=== PATIENT | male | born 1950 | race Caucasian/White ===

== ENCOUNTER 2018-01-11 19:03 | Inpatient (IN) | payer MEDICARE, OTHER ==
[2018-01-11] MEDS: ACETAMINOPHEN 325 MG TAB PO (20:09)
[2018-01-11] MEDS: morphine 4 MG/ML VIAL IV (20:10)
[2018-01-11] MEDS: SODIUM CHLORIDE 0.9% 1L BAG IV* (20:10)
[2018-01-11] MEDS: CEFTRIAXONE 1 GM/50 ML (PMX) 50 ML IVPB (20:10)
[2018-01-11] MEDS: ONDANSETRON 4 MG INJ IV (20:11)
[2018-01-11 20:13] LABS: ADD MAN DIFF? NO
[2018-01-11 20:18] LABS: WHITE BLOOD COUNT 11.1 10^3/ul (4.8-10.8)
[2018-01-11 20:18] LABS: BASOPHILS % 0.2 % (0.0-2.0); EOSINOPHILS % 0.3 % (0.0-7.0); HEMATOCRIT 32.2 % (42.0-52.0); HEMOGLOBIN 10.8 g/dl (14.0-18.0); LYMPHOCYTES # 1.1 10^3/ul (0.8-2.9); LYMPHOCYTES % 9.4 % (15.0-51.0); MEAN CORPUSCULAR HGB CONC 33.5 g/dl (32.0-37.0); MEAN CORPUSCULAR VOLUME 92.5 fl (82.0-101.0); MEAN PLATELET VOLUME 10.7 fl (7.4-10.4); MONOCYTE # 0.7 10^3/ul (0.3-0.9); MONOCYTES % 5.8 % (0.0-11.0); NEUTROPHIL # 9.3 10^3/ul (1.6-7.5); NEUTROPHILS % 83.9 % (39.0-77.0); PLATELET COUNT 190 10^3/UL (140-415); RED BLOOD COUNT 3.48 10^6/ul (4.70-6.10); RED CELL DISTRIBUTION WIDTH 13.9 % (11.5-14.5)
[2018-01-11 20:35] LABS: LACTIC ACID 1.3 mmol/L (0.5-2.0)
[2018-01-11 20:37] LABS: ALANINE AMINOTRANSFERASE 17 IU/L (13-69); ALBUMIN 3.6 g/dl (3.3-4.9); ALBUMIN/GLOBULIN RATIO 0.85; ALKALINE PHOSPHATASE 139 IU/L (42-121); ANION GAP 16 (8-16); ASPARTATE AMINO TRANSFERASE 31 IU/L (15-46); BILIRUBIN,INDIRECT 1.1 mg/dl (0-1.1); BILIRUBIN,TOTAL 1.1 mg/dl (0.2-1.3); BLOOD UREA NITROGEN 34 mg/dl (7-20); CALCIUM 8.5 mg/dl (8.4-10.2); CARBON DIOXIDE 25 mmol/L (21-31); CHLORIDE 100 mmol/L (97-110); CREATININE 1.78 mg/dl (0.61-1.24); GLUCOSE 99 mg/dl (70-220); POTASSIUM 4.5 mmol/L (3.5-5.1); SODIUM 136 mmol/L (135-144); TOTAL PROTEIN 7.8 g/dl (6.1-8.1)
[2018-01-11 20:38] LABS: INR 1.18; PARTIAL THROMBOPLASTIN TIME 39.1 Sec (25.0-35.0); PROTIME 15.2 Sec (11.9-14.9); PT RATIO 1.2
[2018-01-11 22:22] LABS: LACTIC ACID 0.9 mmol/L (0.5-2.0)
[2018-01-11 22:47] LABS: ADD UMIC NO; UR ASCORBIC ACID NEGATIVE (NEGATIVE); UR BILIRUBIN (Dip) NEGATIVE (NEGATIVE); UR BLOOD (Dip) NEGATIVE (NEGATIVE); UR CLARITY CLEAR (CLEAR); UR COLOR YELLOW (YELLOW); UR GLUCOSE (Dip) NEGATIVE (NEGATIVE); UR KETONES (Dip) NEGATIVE (NEGATIVE); UR LEUKOCYTE ESTERASE (Dip) NEGATIVE Leu/ul (NEGATIVE); UR NITRITE (Dip) NEGATIVE (NEGATIVE); UR SPECIFIC GRAVITY (Dip) 1.012 (1.003-1.030); UR TOTAL PROTEIN (Dip) NEGATIVE (NEGATIVE); UR UROBILINOGEN (Dip) 1+ mg/dL (NEGATIVE)
[2018-01-11] MEDS ORDERED: ZOLPIDEM 5 MG TAB PO (23:00)
[2018-01-11] MEDS ORDERED: ONDANSETRON 4 MG INJ IV ×2 (23:00)
[2018-01-11] MEDS ORDERED: HYDROCODONE/APAP (5/325) TAB PO (23:00)
[2018-01-11] MEDS ORDERED: ACETAMINOPHEN 325 MG TAB PO (23:00)
[2018-01-11] MEDS ORDERED: ACETAMINOPHEN 500 MG TAB PO (23:00)
[2018-01-12 00:12] LABS: LACTIC ACID 0.9 mmol/L (0.5-2.0)
[2018-01-12] MEDS: AZITHROMYCIN 500MG/NS (PMX) 250 ML IVPB (00:34)
[2018-01-12] MEDS: APIXABAN 5 MG TABLET PO ×3 (01:37→20:35)
[2018-01-12 05:49] LABS: ADD MAN DIFF? NO
[2018-01-12 05:53] LABS: WHITE BLOOD COUNT 9.1 10^3/ul (4.8-10.8)
[2018-01-12 05:53] LABS: BASOPHILS % 0.2 % (0.0-2.0); EOSINOPHILS % 0.1 % (0.0-7.0); HEMOGLOBIN 9.5 g/dl (14.0-18.0); LYMPHOCYTES # 0.6 10^3/ul (0.8-2.9); MEAN CORPUSCULAR HEMOGLOBIN 30.8 pg (29.0-33.0); MEAN CORPUSCULAR HGB CONC 32.8 g/dl (32.0-37.0); MEAN CORPUSCULAR VOLUME 94.2 fl (82.0-101.0); MEAN PLATELET VOLUME 10.9 fl (7.4-10.4); MONOCYTE # 0.5 10^3/ul (0.3-0.9); MONOCYTES % 5.7 % (0.0-11.0); NEUTROPHIL # 7.9 10^3/ul (1.6-7.5); NEUTROPHILS % 86.8 % (39.0-77.0); PLATELET COUNT 161 10^3/UL (140-415); RED BLOOD COUNT 3.08 10^6/ul (4.70-6.10); RED CELL DISTRIBUTION WIDTH 13.5 % (11.5-14.5)
[2018-01-12 06:09] LABS: ANION GAP 12 (8-16); BLOOD UREA NITROGEN 35 mg/dl (7-20); CALCIUM 7.7 mg/dl (8.4-10.2); CARBON DIOXIDE 25 mmol/L (21-31); CHLORIDE 107 mmol/L (97-110); CREATININE 1.85 mg/dl (0.61-1.24); GLUCOSE 131 mg/dl (70-220); POTASSIUM 4.9 mmol/L (3.5-5.1); SODIUM 139 mmol/L (135-144)
[2018-01-12] MEDS: CEFTRIAXONE 1 GM INJ IM (09:42)
[2018-01-12] MEDS: FERROUS SULFATE (EC) 325 MG TAB PO ×3 (09:42→20:39)
[2018-01-12] MEDS: MULTIVIT/CA CARB/B CMPLX/FA TAB PO (09:42)
[2018-01-12] MEDS: AZITHROMYCIN 500 MG in SOD CHLORIDE 0.9% 250 ML IVPB (09:46)
[2018-01-12] MEDS: FLUTICASONE 0.05% 16 GM NAS SPRAY NASAL (09:46)
[2018-01-12] MEDS ORDERED: ACETAMINOPHEN 325 MG TAB PO (10:00)
[2018-01-12] MEDS: FAMOTIDINE 20 MG TAB PO (10:36)
[2018-01-12] MEDS: BUMETANIDE 1 MG INJ IV (13:12)
[2018-01-12] MEDS: BUMETANIDE 1 MG TAB PO (17:45)
[2018-01-12] MEDS: ATORVASTATIN 40 MG TAB PO (20:35)
[2018-01-13] MEDS: BUMETANIDE 1 MG TAB PO (05:35)
[2018-01-13 06:04] LABS: ADD MAN DIFF? NO
[2018-01-13 06:15] LABS: BASOPHILS % 0.5 % (0.0-2.0); EOSINOPHILS # 0.1 10^3/ul (0.0-0.5); EOSINOPHILS % 1.4 % (0.0-7.0); HEMATOCRIT 27.5 % (42.0-52.0); HEMOGLOBIN 9.1 g/dl (14.0-18.0); LYMPHOCYTES # 0.9 10^3/ul (0.8-2.9); LYMPHOCYTES % 13.4 % (15.0-51.0); MEAN CORPUSCULAR HEMOGLOBIN 30.7 pg (29.0-33.0); MEAN CORPUSCULAR HGB CONC 33.1 g/dl (32.0-37.0); MEAN CORPUSCULAR VOLUME 92.9 fl (82.0-101.0); MEAN PLATELET VOLUME 11.5 fl (7.4-10.4); MONOCYTE # 0.5 10^3/ul (0.3-0.9); MONOCYTES % 8.1 % (0.0-11.0); NEUTROPHIL # 5.1 10^3/ul (1.6-7.5); NEUTROPHILS % 76.1 % (39.0-77.0); PLATELET COUNT 147 10^3/UL (140-415); RED BLOOD COUNT 2.96 10^6/ul (4.70-6.10); RED CELL DISTRIBUTION WIDTH 13.9 % (11.5-14.5)
[2018-01-13 06:15] LABS: WHITE BLOOD COUNT 6.6 10^3/ul (4.8-10.8)
[2018-01-13 07:07] LABS: ANION GAP 11 (8-16); BLOOD UREA NITROGEN 44 mg/dl (7-20); CARBON DIOXIDE 25 mmol/L (21-31); CHLORIDE 107 mmol/L (97-110); CREATININE 2.04 mg/dl (0.61-1.24); GLUCOSE 108 mg/dl (70-220); POTASSIUM 4.4 mmol/L (3.5-5.1); SODIUM 139 mmol/L (135-144)
[2018-01-13] MEDS: MULTIVIT/CA CARB/B CMPLX/FA TAB PO (08:56)
[2018-01-13] MEDS: APIXABAN 5 MG TABLET PO (08:59)
[2018-01-13] MEDS: FAMOTIDINE 20 MG TAB PO (08:59)
[2018-01-13] MEDS: LEVOFLOXACIN 750MG/D5W (PMX) 150 ML IVPB (09:06)
[2018-01-13] MEDS: FERROUS SULFATE (EC) 325 MG TAB PO ×2 (09:07→13:00)
[2018-01-13 09:19] LABS: MAGNESIUM 2.1 mg/dl (1.7-2.5)
[2018-01-13 09:19] LABS: PHOSPHORUS 4.8 mg/dl (2.5-4.9)
[2018-01-13] MEDS: LACTOBACILLUS RHAMNOSUS CAP PO (12:44)
== END 2018-01-13 15:42 | disposition home or self-care (01) | DRG 194 ==
LOC: PP2 22:40 → E/R 19:03
DX: J18.9 Pneumonia, unspecified organism (principal); I42.9 Cardiomyopathy, unspecified; I50.20 Unspecified systolic (congestive) heart failure; I48.91 Unspecified atrial fibrillation; E78.5 Hyperlipidemia, unspecified; E11.9 Type 2 diabetes mellitus without complications; N18.3 Chronic kidney disease, stage 3 (moderate); Z95.0 Presence of cardiac pacemaker
CPT/HCPCS: 36415; 71045; 71046; 80048; 80053; 81003; 83605; 83735; 84100; 84484; 85025; 85610; 85730; 87040; 87086; 93005; 96374; 96375; 99291-25

== ENCOUNTER 2018-10-07 20:39 | Emergency (ER) | payer SELFPAY, OTHER, MEDICARE | END 2018-10-08 02:05 | disposition left against medical advice (07) | LOC: FTE 20:39 | DX: Z53.21 Procedure and treatment not carried out due to patient leaving prior to being seen by health care provider (principal) | CPT/HCPCS: 93005 ==

== ENCOUNTER 2019-01-24 12:52 | Inpatient (IN) | payer MEDICARE, OTHER ==
[2019-01-24 13:54] LABS: ADD MAN DIFF? NO
[2019-01-24 13:57] LABS: WHITE BLOOD COUNT 5.3 10^3/ul (4.8-10.8)
[2019-01-24 13:57] LABS: BASOPHIL # 0.1 10^3/ul (0.0-0.1); BASOPHILS % 1.3 % (0.0-2.0); EOSINOPHILS # 0.1 10^3/ul (0.0-0.5); EOSINOPHILS % 2.5 % (0.0-7.0); HEMATOCRIT 33.4 % (42.0-52.0); HEMOGLOBIN 10.9 g/dl (14.0-18.0); LYMPHOCYTES # 0.7 10^3/ul (0.8-2.9); LYMPHOCYTES % 13.3 % (15.0-51.0); MEAN CORPUSCULAR HEMOGLOBIN 30.5 pg (29.0-33.0); MEAN CORPUSCULAR HGB CONC 32.6 g/dl (32.0-37.0); MEAN CORPUSCULAR VOLUME 93.6 fl (82.0-101.0); MONOCYTE # 0.6 10^3/ul (0.3-0.9); MONOCYTES % 10.9 % (0.0-11.0); NEUTROPHIL # 3.8 10^3/ul (1.6-7.5); NEUTROPHILS % 71.8 % (39.0-77.0); PLATELET COUNT 208 10^3/UL (140-415); RED BLOOD COUNT 3.57 10^6/ul (4.70-6.10); RED CELL DISTRIBUTION WIDTH 14.6 % (11.5-14.5)
[2019-01-24 14:21] LABS: ALANINE AMINOTRANSFERASE 38 IU/L (13-69); ALBUMIN 2.6 g/dl (3.3-4.9); ALBUMIN/GLOBULIN RATIO 0.86; ALKALINE PHOSPHATASE 97 IU/L (42-121); ANION GAP 5 (5-13); ASPARTATE AMINO TRANSFERASE 51 IU/L (15-46); BILIRUBIN,INDIRECT 0.4 mg/dl (0-1.1); BILIRUBIN,TOTAL 0.4 mg/dl (0.2-1.3); BLOOD UREA NITROGEN 80 mg/dl (7-20); CALCIUM 7.5 mg/dl (8.4-10.2); CARBON DIOXIDE 29 mmol/L (21-31); CHLORIDE 103 mmol/L (97-110); CREATININE 2.94 mg/dl (0.61-1.24); Estimated GFR 21 mL/min (>60); GLUCOSE 111 mg/dl (70-220); POTASSIUM 3.9 mmol/L (3.5-5.1); SODIUM 137 mmol/L (135-144); TOTAL PROTEIN 5.6 g/dl (6.1-8.1)
[2019-01-24 14:30] LABS: B-TYPE NATRIURETIC PEPTIDE 12200 PG/ML (0-125)
[2019-01-24 14:34] LABS: TROPONIN-I < 0.012 ng/ml (0.000-0.120)
[2019-01-24] MEDS: BUMETANIDE 1 MG INJ IV ×2 (15:57→18:00)
[2019-01-24] MEDS ORDERED: ONDANSETRON 4 MG INJ IV (17:00)
[2019-01-24] MEDS ORDERED: ACETAMINOPHEN 325 MG TAB PO (17:00)
[2019-01-24] MEDS ORDERED: NACL 0.9% 3 ML SYG IV (17:30)
[2019-01-24] MEDS ORDERED: DOCUSATE SODIUM 100 MG CAP PO (17:30)
[2019-01-24] MEDS ORDERED: ZOLPIDEM 5 MG TAB PO (17:30)
[2019-01-24] MEDS ORDERED: HYDROCODONE/APAP (5/325) TAB PO (17:30)
[2019-01-24] MEDS ORDERED: morphine 2 MG INJ IV (17:30)
[2019-01-24] MEDS: ATORVASTATIN 40 MG TAB PO (23:34)
[2019-01-24] MEDS: APIXABAN 5 MG TABLET PO (23:34)
[2019-01-24] MEDS: AMIODARONE 200 MG TAB PO (23:35)
[2019-01-25] MEDS: BUMETANIDE 1 MG INJ IV ×2 (06:33→18:00)
[2019-01-25 06:50] LABS: ADD MAN DIFF? NO
[2019-01-25 06:51] LABS: WHITE BLOOD COUNT 5.2 10^3/ul (4.8-10.8)
[2019-01-25 06:51] LABS: BASOPHILS % 0.8 % (0.0-2.0); EOSINOPHILS # 0.2 10^3/ul (0.0-0.5); EOSINOPHILS % 3.5 % (0.0-7.0); HEMATOCRIT 30.8 % (42.0-52.0); HEMOGLOBIN 9.9 g/dl (14.0-18.0); LYMPHOCYTES # 0.8 10^3/ul (0.8-2.9); LYMPHOCYTES % 15.5 % (15.0-51.0); MEAN CORPUSCULAR HEMOGLOBIN 30.2 pg (29.0-33.0); MEAN CORPUSCULAR HGB CONC 32.1 g/dl (32.0-37.0); MEAN CORPUSCULAR VOLUME 93.9 fl (82.0-101.0); MEAN PLATELET VOLUME 11.3 fl (7.4-10.4); MONOCYTE # 0.6 10^3/ul (0.3-0.9); MONOCYTES % 12.2 % (0.0-11.0); NEUTROPHIL # 3.5 10^3/ul (1.6-7.5); NEUTROPHILS % 67.4 % (39.0-77.0); PLATELET COUNT 201 10^3/UL (140-415); RED BLOOD COUNT 3.28 10^6/ul (4.70-6.10); RED CELL DISTRIBUTION WIDTH 14.6 % (11.5-14.5)
[2019-01-25 07:05] LABS: HEMOGLOBIN A1C 5.8 % (0-5.9)
[2019-01-25 07:14] LABS: ANION GAP 4 (5-13); BLOOD UREA NITROGEN 69 mg/dl (7-20); CALCIUM 7.6 mg/dl (8.4-10.2); CARBON DIOXIDE 30 mmol/L (21-31); CHLORIDE 106 mmol/L (97-110); CHOL/HDL RATIO 4.9 RATIO; CHOLESTEROL 104 mg/dl (100-200); CREATININE 2.27 mg/dl (0.61-1.24); Estimated GFR 29 mL/min (>60); GLUCOSE 82 mg/dl (70-220); HDL CHOLESTEROL 21 mg/dl (31-75); LDL CHOLESTEROL,CALCULATED 61 mg/dl; MAGNESIUM 2.2 mg/dl (1.7-2.5); PHOSPHORUS 3.8 mg/dl (2.5-4.9); POTASSIUM 3.5 mmol/L (3.5-5.1); SODIUM 140 mmol/L (135-144); TRIGLYCERIDES 111 mg/dl (0-149)
[2019-01-25] MEDS: MULTIVIT/CA CARB/B CMPLX/FA TAB PO (09:58)
[2019-01-25] MEDS: APIXABAN 5 MG TABLET PO ×2 (09:59→21:46)
[2019-01-25] MEDS: AMIODARONE 200 MG TAB PO ×2 (10:01→21:00)
[2019-01-25 20:38] LABS: ADD UMIC NO; UR ASCORBIC ACID 20 mg/dL (NEGATIVE); UR BILIRUBIN (Dip) NEGATIVE (NEGATIVE); UR BLOOD (Dip) NEGATIVE (NEGATIVE); UR CLARITY CLEAR (CLEAR); UR COLOR YELLOW (YELLOW); UR GLUCOSE (Dip) NEGATIVE (NEGATIVE); UR KETONES (Dip) NEGATIVE (NEGATIVE); UR LEUKOCYTE ESTERASE (Dip) NEGATIVE Leu/ul (NEGATIVE); UR NITRITE (Dip) NEGATIVE (NEGATIVE); UR SPECIFIC GRAVITY (Dip) 1.011 (1.003-1.030); UR TOTAL PROTEIN (Dip) NEGATIVE (NEGATIVE); UR UROBILINOGEN (Dip) NEGATIVE (NEGATIVE)
[2019-01-25 20:44] LABS: CREATININE,URINE RANDOM 70.99 mg/dl (20-370)
[2019-01-25 20:46] LABS: SODIUM,URINE RANDOM < 13 mmol/L (30-90)
[2019-01-25] MEDS: ATORVASTATIN 40 MG TAB PO (21:42)
[2019-01-26] MEDS: BUMETANIDE 1 MG INJ IV ×2 (01:39→06:24)
[2019-01-26] MEDS: ALBUTEROL/IPRATROPIUM (NEB) 3 ML AMP HHN ×2 (01:53→12:06)
[2019-01-26 06:13] LABS: ADD MAN DIFF? NO
[2019-01-26 06:25] LABS: BASOPHIL # 0.1 10^3/ul (0.0-0.1); BASOPHILS % 0.9 % (0.0-2.0); EOSINOPHILS # 0.2 10^3/ul (0.0-0.5); EOSINOPHILS % 3.3 % (0.0-7.0); HEMATOCRIT 32.7 % (42.0-52.0); HEMOGLOBIN 10.7 g/dl (14.0-18.0); LYMPHOCYTES # 0.9 10^3/ul (0.8-2.9); LYMPHOCYTES % 15.8 % (15.0-51.0); MEAN CORPUSCULAR HEMOGLOBIN 30.8 pg (29.0-33.0); MEAN CORPUSCULAR HGB CONC 32.7 g/dl (32.0-37.0); MEAN CORPUSCULAR VOLUME 94.2 fl (82.0-101.0); MEAN PLATELET VOLUME 10.9 fl (7.4-10.4); MONOCYTE # 0.7 10^3/ul (0.3-0.9); MONOCYTES % 12.7 % (0.0-11.0); NEUTROPHIL # 3.9 10^3/ul (1.6-7.5); PLATELET COUNT 214 10^3/UL (140-415); RED BLOOD COUNT 3.47 10^6/ul (4.70-6.10); RED CELL DISTRIBUTION WIDTH 14.6 % (11.5-14.5)
[2019-01-26 06:25] LABS: WHITE BLOOD COUNT 5.8 10^3/ul (4.8-10.8)
[2019-01-26 07:07] LABS: ANION GAP 5 (5-13); BLOOD UREA NITROGEN 54 mg/dl (7-20); CALCIUM 7.6 mg/dl (8.4-10.2); CARBON DIOXIDE 30 mmol/L (21-31); CHLORIDE 105 mmol/L (97-110); Estimated GFR 35 mL/min (>60); GLUCOSE 97 mg/dl (70-220); MAGNESIUM 2.3 mg/dl (1.7-2.5); PHOSPHORUS 3.6 mg/dl (2.5-4.9); POTASSIUM 3.7 mmol/L (3.5-5.1); SODIUM 140 mmol/L (135-144)
[2019-01-26] MEDS: METOLAZONE 2.5 MG TAB PO (08:28)
[2019-01-26] MEDS: MULTIVIT/CA CARB/B CMPLX/FA TAB PO (08:28)
[2019-01-26] MEDS: APIXABAN 5 MG TABLET PO (08:29)
[2019-01-26] MEDS: AMIODARONE 200 MG TAB PO (08:29)
[2019-01-26] MEDS: ONDANSETRON 4 MG INJ IV (12:08)
[2019-01-26] MEDS: ACETAMINOPHEN 325 MG TAB PO (13:06)
[2019-01-28 14:57] LABS: CREATININE, RANDOM URINE 68 mg/dL (20-320); MICROALBUMIN 0.3 mg/dL; MICROALBUMIN/CREATININE RATIO 4 (<30)
== END 2019-01-26 18:30 | disposition home or self-care (01) | DRG 291 ==
LOC: E/R 12:52 → 6WM 16:46
DX: I13.0 Hypertensive heart and chronic kidney disease with heart failure and stage 1 through stage 4 chronic kidney disease, or unspecified chronic kidney disease (principal); I50.23 Acute on chronic systolic (congestive) heart failure; J96.00 Acute respiratory failure, unspecified whether with hypoxia or hypercapnia; N17.9 Acute kidney failure, unspecified; I42.9 Cardiomyopathy, unspecified; E78.5 Hyperlipidemia, unspecified; D64.9 Anemia, unspecified; I48.0 Paroxysmal atrial fibrillation; N18.3 Chronic kidney disease, stage 3 (moderate); R73.03 Prediabetes; Z85.038 Personal history of other malignant neoplasm of large intestine; Z95.0 Presence of cardiac pacemaker; Z85.028 Personal history of other malignant neoplasm of stomach
CPT/HCPCS: 36415; 71045; 80048; 80053; 80061; 81003; 82043; 83036; 83735; 83880; 84100; 84155; 84300; 84484; 85025; 93005; 93306; 94640; 94664; 96374; 99285-25